=== PATIENT | male | born 1975 | race Caucasian/White ===

== ENCOUNTER 2020-02-23 10:01 | Outpatient (CLI) | payer OTHER, SELFPAY ==
[2020-02-23 10:42] LABS: SARS-CoV-2 Ag Positive (Negative)
== END 2020-02-23 10:02 | disposition home or self-care (01) ==
LOC: CHSLAB 10:03
PROVIDERS: Nurse Practitioner; PCP Family Medicine; Visit Provider Family Medicine
DX: U07.1 COVID-19 (principal)
CPT/HCPCS: 87426

== ENCOUNTER 2021-03-03 13:50 | Outpatient (CLI) | payer OTHER, SELFPAY ==
[2021-03-03 14:33] LABS: SARS-CoV-2 Ag Negative (Negative)
== END 2021-03-03 13:51 | disposition home or self-care (01) ==
PROVIDERS: PCP Nurse Practitioner; Visit Provider Nurse Practitioner
DX: Z20.822 Contact with and (suspected) exposure to COVID-19 (principal)
CPT/HCPCS: 87426; C9803